=== PATIENT | male | born 1985 | race Caucasian/White ===

== ENCOUNTER 2020-12-04 23:35 | Emergency (ER) | payer OTHER ==
[2020-12-05] MEDS ORDERED: ACETAMINOPHEN EXTRA STRENGTH 500 MG TABLET ONE (01:15)
[2020-12-05] MEDS ORDERED: IBUPROFEN 600 MG TABLET ONE (01:15)
[2020-12-05] MEDS ORDERED: BENZONATATE 100 MG CAPSULE PO ONE (01:15)
== END 2020-12-05 02:03 ==
LOC: EDH 23:35
DX: J06.9 Acute upper respiratory infection, unspecified (principal); B34.9 Viral infection, unspecified; Z20.828 Contact with and (suspected) exposure to other viral communicable diseases; Z72.0 Tobacco use
CPT/HCPCS: 87426; 87804 ×2; 87880; 99284; U0003

== ENCOUNTER 2020-12-09 11:41 | Emergency (ER) | payer OTHER ==
[2020-12-09] MEDS ORDERED: SODIUM CHLORIDE 0.9% 1000ML 1,000 ML IV ONE ×2 (12:04→13:58)
[2020-12-09] MEDS ORDERED: ONDANSETRON HCL 4 MG/2 ML VIAL ONE (12:06)
[2020-12-09 12:27] LABS: BASOPHILS % (AUTO) 0.4 % (0.0-5.0); EOSINOPHILS % (AUTO) 0.2 % (0.0-8.0); HEMATOCRIT 45.6 % (42-54); LYMPHOCYTES % (AUTO) 20.6 % (21.0-51.0); MEAN CORPUSCULAR HEMOGLOBIN 28.6 pg (27.0-33.0); MEAN CORPUSCULAR HGB CONC 35.1 g/dL (32.0-36.0); MEAN CORPUSCULAR VOLUME 81.4 fL (79-99); MONOCYTES % (AUTO) 7.8 % (3.0-13.0); NEUTROPHILS % (AUTO) 70.7 % (40.0-77.0); PLATELET COUNT (AUTO) 314 K/uL (130-400); RED CELL DISTRIBUTION WIDTH 12.7 % (11.0-15.5); WHITE BLOOD COUNT (AUTO) 13.5 K/uL (4.8-10.8)
[2020-12-09 12:38] LABS: APPEARANCE,URINE Clear (CLEAR); BILIRUBIN,URINE Negative (NEGATIVE); COLOR,URINE Yellow (YELLOW); GLUCOSE, URINE (UA) Negative (NEGATIVE); KETONES,URINE 40 mg/dL (NEGATIVE); LEUKOCYTE ESTERASE ,URINE Negative (NEGATIVE); NITRATE,URINE Negative (NEGATIVE); OCCULT BLOOD,URINE Negative (NEGATIVE); PROTEIN,URINE Negative (NEGATIVE)
[2020-12-09 12:41] LABS: AMPHET/METH SCREEN,URINE NEGATIVE (NEGATIVE); BARBITURATE SCREEN, URINE NEGATIVE (NEGATIVE); BENZODIAZEPINES SCREEN,URINE NEGATIVE (NEGATIVE); CANNABINOID SCREEN,URINE NEGATIVE (NEGATIVE); COCAINE SCREEN,URINE NEGATIVE (NEGATIVE); OPIATE SCREEN,URINE NEGATIVE (NEGATIVE); PHENCYCLIDINE SCREEN,URINE NEGATIVE (NEGATIVE)
[2020-12-09 12:50] LABS: CREATININE 0.8 mg/dL (0.5-1.5); POTASSIUM 3.5 mmol/L (3.5-5.1)
[2020-12-09 12:55] LABS: ALBUMIN 3.7 g/dL (3.5-5.0); BILIRUBIN,TOTAL 0.9 mg/dL (0.2-1.0); TOTAL PROTEIN, SERUM 7.5 g/dL (6.0-8.3)
[2020-12-09 13:01] LABS: BACTERIA,URINE Rare /HPF (None Seen); RBC,URINE None Seen /HPF (0-1); SQUAMOUS EPITHELIAL CELL,UR 0-2 /HPF (0-2); WBC,URINE 0-1 /HPF (0-1)
[2020-12-12] MEDS ORDERED: LEVE-43 PO (15:27)
== END 2020-12-09 16:00 | disposition home or self-care (01) ==
LOC: EDH 11:41 → EEVIPCON 11:41 → EDH 16:00
DX: E86.0 Dehydration (principal); R55 Syncope and collapse; F15.10 Other stimulant abuse, uncomplicated
CPT/HCPCS: 36415; 70450; 80053; 80305; 81001; 82550; 83605; 85025; 93005; 96361; 96374; 99285; J2405; J7030 ×2

== ENCOUNTER 2020-12-10 10:57 | Inpatient (IN) | payer OTHER ==
[~2020-12-10] VITALS: Ht 177.8 cm; Wt 77.3 kg
[2020-12-10] MEDS ORDERED: LORAZEPAM 2 MG/ML 1 ML VIAL ONE (11:18)
[2020-12-10] MEDS ORDERED: 0.9%NACL 1000ML 1,000 ML IV ONE (11:31)
[2020-12-10 11:44] LABS: CREATININE 0.8 mg/dL (0.5-1.5); POTASSIUM 5.2 mmol/L (3.5-5.1)
[2020-12-10 11:49] LABS: ALBUMIN 3.4 g/dL (3.5-5.0); BILIRUBIN,TOTAL 0.7 mg/dL (0.2-1.0); TOTAL PROTEIN, SERUM 7.2 g/dL (6.0-8.3)
[2020-12-10 11:52] LABS: BASOPHILS % (AUTO) 0.5 % (0.0-5.0); EOSINOPHILS % (AUTO) 0.7 % (0.0-8.0); HEMATOCRIT 46.8 % (42-54); LYMPHOCYTES % (AUTO) 24.4 % (21.0-51.0); MEAN CORPUSCULAR HEMOGLOBIN 27.7 pg (27.0-33.0); MEAN CORPUSCULAR HGB CONC 33.8 g/dL (32.0-36.0); MONOCYTES % (AUTO) 7.9 % (3.0-13.0); NEUTROPHILS % (AUTO) 66.2 % (40.0-77.0); PLATELET COUNT (AUTO) 221 K/uL (130-400); RED BLOOD CELL COUNT(AUTO) 5.71 MIL/uL (4.50-6.20); RED CELL DISTRIBUTION WIDTH 12.6 % (11.0-15.5); WHITE BLOOD COUNT (AUTO) 12.7 K/uL (4.8-10.8)
[2020-12-10 12:17] LABS: APPEARANCE,URINE Clear (CLEAR); BILIRUBIN,URINE Negative (NEGATIVE); COLOR,URINE Yellow (YELLOW); GLUCOSE, URINE (UA) Negative (NEGATIVE); KETONES,URINE >=80 mg/dL (NEGATIVE); LEUKOCYTE ESTERASE ,URINE Negative (NEGATIVE); NITRATE,URINE Negative (NEGATIVE); OCCULT BLOOD,URINE Negative (NEGATIVE); PROTEIN,URINE Negative (NEGATIVE)
[2020-12-10 12:25] LABS: AMPHET/METH SCREEN,URINE NEGATIVE (NEGATIVE); BACTERIA,URINE None Seen /HPF (None Seen); BARBITURATE SCREEN, URINE NEGATIVE (NEGATIVE); BENZODIAZEPINES SCREEN,URINE NEGATIVE (NEGATIVE); CANNABINOID SCREEN,URINE NEGATIVE (NEGATIVE); COCAINE SCREEN,URINE NEGATIVE (NEGATIVE); OPIATE SCREEN,URINE NEGATIVE (NEGATIVE); PHENCYCLIDINE SCREEN,URINE NEGATIVE (NEGATIVE); RBC,URINE 0-1 /HPF (0-1); SQUAMOUS EPITHELIAL CELL,UR 0-2 /HPF (0-2); WBC,URINE None Seen /HPF (0-1)
[2020-12-10] MEDS ORDERED: ACETAMINOPHEN 500 MG TABLET ONE (13:19)
[2020-12-10] MEDS ORDERED: LEVETIRACETAM 500 MG TABLET PO ONE (13:37)
[2020-12-10] MEDS ORDERED: ONDANSETRON 4MG INJ IVP PRN (14:30)
[2020-12-10 14:51] VITALS: BP 124/82
[2020-12-10 16:00] VITALS: BP 128/75
[2020-12-10 19:38] VITALS: BP 130/78
[2020-12-10] MEDS: LEVETIRACETAM 500 MG TABLET PO SCH (20:29)
[2020-12-10] MEDS: FAMOTIDINE 20MG TAB PO SCH (20:30)
[2020-12-10] MEDS ORDERED: LORAZEPAM 2 MG/ML 1 ML VIAL IVP PRN (21:30)
[2020-12-10 21:56] LABS: CREATININE 0.8 mg/dL (0.5-1.5); POTASSIUM 3.4 mmol/L (3.5-5.1)
[2020-12-10 22:01] LABS: ALBUMIN 3.2 g/dL (3.5-5.0); BILIRUBIN,TOTAL 0.5 mg/dL (0.2-1.0); TOTAL PROTEIN, SERUM 6.9 g/dL (6.0-8.3)
[2020-12-10 23:40] VITALS: BP 125/79
[2020-12-11] MEDS: 0.9%NACL 1000ML 1,000 ML IV SCH ×4 (03:15→20:33)
[2020-12-11 03:46] VITALS: BP 130/81
[2020-12-11 05:03] LABS: BASOPHILS % (AUTO) 0.6 % (0.0-5.0); HEMATOCRIT 42.9 % (42-54); LYMPHOCYTES % (AUTO) 29.1 % (21.0-51.0); MEAN CORPUSCULAR HEMOGLOBIN 27.8 pg (27.0-33.0); MEAN CORPUSCULAR HGB CONC 33.8 g/dL (32.0-36.0); MEAN CORPUSCULAR VOLUME 82.3 fL (79-99); MONOCYTES % (AUTO) 6.9 % (3.0-13.0); PLATELET COUNT (AUTO) 280 K/uL (130-400); RED BLOOD CELL COUNT(AUTO) 5.21 MIL/uL (4.50-6.20); RED CELL DISTRIBUTION WIDTH 12.4 % (11.0-15.5); WHITE BLOOD COUNT (AUTO) 9.9 K/uL (4.8-10.8)
[2020-12-11 06:48] LABS: BASOPHILS % (AUTO) 0.6 % (0.0-5.0); EOSINOPHILS % (AUTO) 5.5 % (0.0-8.0); HEMATOCRIT 42.7 % (42-54); LYMPHOCYTES % (AUTO) 26.4 % (21.0-51.0); MEAN CORPUSCULAR HEMOGLOBIN 27.8 pg (27.0-33.0); MONOCYTES % (AUTO) 6.6 % (3.0-13.0); NEUTROPHILS % (AUTO) 60.7 % (40.0-77.0); PLATELET COUNT (AUTO) 270 K/uL (130-400); RED BLOOD CELL COUNT(AUTO) 5.21 MIL/uL (4.50-6.20); RED CELL DISTRIBUTION WIDTH 12.5 % (11.0-15.5)
[2020-12-11 06:58] LABS: CREATININE 0.9 mg/dL (0.5-1.5); POTASSIUM 3.6 mmol/L (3.5-5.1)
[2020-12-11 08:01] VITALS: BP 121/75
[2020-12-11] MEDS: FAMOTIDINE 20MG TAB PO SCH ×2 (09:56→20:33)
[2020-12-11] MEDS: LEVETIRACETAM 500 MG TABLET PO SCH ×2 (09:56→20:33)
[2020-12-11] MEDS: NICOTINE 14 MG/ 24 HR PATCH TD SCH (09:57)
[2020-12-11 11:37] VITALS: BP 116/76
[2020-12-11 16:01] VITALS: BP 127/75
[2020-12-11] MEDS: ACETAMINOPHEN 325 MG TAB PO PRN ×2 (16:12→23:18)
[2020-12-11 20:00] VITALS: BP 123/71
[2020-12-12] VITALS: BP 118/68
[2020-12-12 04:00] VITALS: BP 117/65
[2020-12-12 07:44] VITALS: BP 134/70
[2020-12-12] MEDS: NICOTINE 14 MG/ 24 HR PATCH TD SCH (09:10)
[2020-12-12] MEDS: FAMOTIDINE 20MG TAB PO SCH ×2 (09:10→20:02)
[2020-12-12] MEDS: LEVETIRACETAM 500 MG TABLET PO SCH ×2 (09:10→20:02)
[2020-12-12] MEDS: ACETAMINOPHEN 325 MG TAB PO PRN (09:15)
[2020-12-12 10:49] VITALS: BP 102/57
[2020-12-12 15:10] VITALS: BP 122/79
[2020-12-12 15:13] VITALS: BP 115/91
[2020-12-12] MEDS ORDERED: LEVE-43 PO ×2 (15:27)
== END 2020-12-12 20:30 | DRG 101 ==
LOC: EEVIPCON 10:57 → EDH 10:57 → EDHIP 14:26 → OBSVTOIN 14:26 → 4CH 16:10
PROVIDERS: ADMIT Family Medicine; ATTEND Family Medicine
DX: R56.9 Unspecified convulsions (principal); F13.239 Sedative, hypnotic or anxiolytic dependence with withdrawal, unspecified; F19.10 Other psychoactive substance abuse, uncomplicated; Z71.41 Alcohol abuse counseling and surveillance of alcoholic; Z79.899 Other long term (current) drug therapy; Z20.822 Contact with and (suspected) exposure to COVID-19
CPT/HCPCS: 36415; 70450; 70551; 71046; 71250; 80053; 80305; 85025; 87426; G0378; J2060; J7030; U0003

== ENCOUNTER 2020-12-13 16:31 | Emergency (ER) | payer OTHER ==
[~2020-12-13 16:31] MED LIST: LEVE-43 PO
[2020-12-13 17:24] LABS: BASOPHILS % (AUTO) 0.5 % (0.0-5.0); EOSINOPHILS % (AUTO) 2.1 % (0.0-8.0); HEMATOCRIT 44.5 % (42-54); LYMPHOCYTES % (AUTO) 27.5 % (21.0-51.0); MEAN CORPUSCULAR HEMOGLOBIN 28.1 pg (27.0-33.0); MEAN CORPUSCULAR HGB CONC 33.7 g/dL (32.0-36.0); MEAN CORPUSCULAR VOLUME 83.5 fL (79-99); MONOCYTES % (AUTO) 5.6 % (3.0-13.0); PLATELET COUNT (AUTO) 314 K/uL (130-400); RED BLOOD CELL COUNT(AUTO) 5.33 MIL/uL (4.50-6.20); RED CELL DISTRIBUTION WIDTH 12.5 % (11.0-15.5); WHITE BLOOD COUNT (AUTO) 11.6 K/uL (4.8-10.8)
[2020-12-13 17:38] LABS: CREATININE 0.9 mg/dL (0.5-1.5); POTASSIUM 3.7 mmol/L (3.5-5.1)
[2020-12-13 17:43] LABS: ALBUMIN 3.6 g/dL (3.5-5.0); BILIRUBIN,TOTAL 0.5 mg/dL (0.2-1.0); TOTAL PROTEIN, SERUM 7.6 g/dL (6.0-8.3)
[2020-12-13] MEDS ORDERED: LEVETIRACETAM 500 MG TABLET PO ONE (17:45)
== END 2020-12-13 18:46 ==
LOC: EDH 16:31
DX: R56.9 Unspecified convulsions (principal)
CPT/HCPCS: 36415; 70450; 80053; 80177; 82550; 85025